=== PATIENT | male | born 1940 | race Caucasian/White ===

== ENCOUNTER 2018-07-18 21:56 | Emergency (ER) | payer MEDICARE, BC, SELFPAY ==
[2018-07-18 22:08] VITALS: BP 146/84; PULSE 65; RESP 14; TEMP 36.9; O2SAT 96
--- NOTE | 2018-07-18 22:09 | ED.AMS ---
HPI - Altered Mental Status General Chief Complaint: Neuro Symptoms/Deficit Stated Complaint: was found sleeping and unresponsive, is now alert Time Seen by Provider: 07/18/18 22:03 Source: patient, family and EMS Mode of arrival: ambulatory Limitations: no limitations History of Present Illness HPI narrative: 77-year-old male nonsmoker with history of hypertension and hyperlipidemia presents with multiple family members by private auto from 1 of the [place] eye [facility] for evaluation. He had a rather busy day of travel and admittedly had less to eat and drink than he normally would. He, in multiple family members went home to rest this afternoon and taking naps and the family found him difficult to arouse. They say he was snoring loudly and they shook him vigorously and he did not wake. Related Data Home Medications Medication Instructions Recorded Confirmed amlodipine 07/18/18 atorvastatin 07/18/18 losartan 07/18/18 metoprolol tartrate 07/18/18 Allergies Allergy/AdvReac Type Severity Reaction Status Date / Time No Known Drug Allergies Allergy Verified 07/18/18 22:10 Review of Systems Constitutional Denies chills, Denies fever(s), Denies lethargy and Denies weakness Eyes Denies change in vision, Denies eye discharge, Denies irritation and Denies loss of vision ENT Ears, Nose, Mouth, and Throat: Denies change in voice, Denies neck pain and Denies sore throat Cardiovascular Denies chest pain, Denies irregular heart rhythm, Denies lightheadedness, Denies palpitations, Denies dyspnea, Denies dyspnea on exertion and Denies orthopnea Respiratory Denies cough, Denies dyspnea, Denies dyspnea on exertion and Denies wheezing Gastrointestinal Gastrointestinal: Denies abdominal pain, Denies change in bowel habits, Denies diarrhea, Denies nausea and Denies vomiting Genitourinary Denies hematuria, Denies flank pain, Denies urinary incontinence and Denies urinary urgency Musculoskeletal Denies neck pain Integumentary/Breasts Denies pruritus, Denies erythema, Denies rash and Denies wounds Neurologic Denies confusion, Denies loss of vision and Denies weakness Psychiatric Denies anxiety, Denies confusion, Denies depression, Denies homicidal ideation and Denies suicidal ideation Endocrine Denies palpitations Hematologic/Lymphatic Denies easy bruising Allergic/Immunologic Denies wheezing Exam Narrative Exam Narrative: GENERAL: This is a well-nourished, well-developed patient, in mild distress. HEAD: Atraumatic. Normocephalic. No temporal or scalp tenderness. EYES: Pupils equal round and reactive. Extraocular motions intact. No scleral icterus. No injection or drainage. ENT: Nose without bleeding, purulent drainage or septal hematoma. Throat without erythema, tonsillar hypertrophy or exudate. Uvula midline. Airway patent. NECK: Trachea midline. No JVD or lymphadenopathy. Supple, nontender, no meningeal signs. CARDIOVASCULAR: Regular rate and rhythm without murmurs, gallops, or rubs. RESPIRATORY: Clear to auscultation. Breath sounds equal bilaterally. No wheezes, rales, or rhonchi. GASTROINTESTINAL: Abdomen soft, non-tender, nondistended. No hepato-splenomegaly, or palpable masses. No guarding. EXTREMITIES: No clubbing, cyanosis, or edema. No joint tenderness, effusion, or edema noted. BACK: Nontender without deformity or crepitance. No flank tenderness. NEURO: AOx3. SKIN: No rash or erythema. NIH Stroke Scale 1a. LOC: Patient is alert and keenly responsive (0) 1b. LOC Questions: Patient answers both LOC questions accurately (0) 1c. LOC Commands: Patient performs both tasks correctly (0) 2. Best Gaze: Normal (0) 3. Visual: No visual loss (0) 4. Facial palsy: Normal symmetrical movements (0) 5. Motor arm: No drift (0) 6. Motor leg: No drift (0) 7. Limb ataxia: Absent (0) 8. Sensory: Normal (0) 9. Best language: No aphasia; normal (0) 10. Dysarthria: Normal (0) 11. Extinction and inattention: No abnormality (0) NIHSS: 0 Initial Vital Signs Initial Vital Signs: Vital Signs Temperature 98.4 F 07/18/18 22:08 Pulse Rate 65 07/18/18 22:08 Respiratory Rate 14 07/18/18 22:08 Blood Pressure 146/84 H 07/18/18 22:08 Pulse Oximetry 96 07/18/18 22:08 Course Orders Ordered: ED Orders 07/18/18 22:19 CT head/brain wo con Stat EKG-12 Lead Stat 07/18/18 22:35 Basic Metabolic Panel Stat Complete Blood Count AUTO DIFF Stat Partial Thromboplastin Time Stat Prolactin Stat Prothrombin Time INR Stat Troponin I Stat Discontinued Medications Sodium Chloride (Normal Saline 0.9%) 1,000 mls @ 150 mls/hr IV CONT ARRON Last Infusion: 07/19/18 01:15 Dose: 0 mls/hr Infusion: 07/19/18 01:14 Dose: 0 mls/hr Admin: 07/18/18 22:48 Dose: 150 mls/hr Reevaluation(s) Reevaluation #1: patient Vital Signs - 8 hr 07/18/18 22:08 07/19/18 00:36 07/19/18 01:18 Temperature 98.4 F Pulse Rate 65 70 Pulse Rate [Orthostatic Lying] 64 Pulse Rate [Orthostatic Sitting] 62 Pulse Rate [Orthostatic Standing] 66 Respiratory Rate 14 19 Blood Pressure 146/84 H 135/89 Blood Pressure [Orthostatic Lying] 117/74 Blood Pressure [Orthostatic Sitting] 136/82 Blood Pressure [Orthostatic Standing] 127/92 H Pulse Oximetry 96 96 MDM - Altered Mental Status Lab Data Result diagrams: 07/18/18 22:35 07/18/18 22:35 Lab Results 07/18/18 07/18/18 07/18/18 Range/Units 22:35 22:35 22:35 WBC 14.2 H (4.5-11.0) X10^3/uL RBC 4.55 (4.5-5.9) X10^6/uL Hgb 14.8 (13.5-17.5) g/dL Hct 42.8 (41-53) % MCV 94.0 (80-100) fL MCH 32.5 (26-34) PG MCHC 34.6 (30-36) % RDW 13.3 (11.6-14.8) % Plt Count 166 (150-400) X10^3/uL Neut % (Auto) 77.7 H (50-75) % Lymph % (Auto) 13.2 L (25-40) % [place] % (Auto) 7.7 (3-14) % Eos % (Auto) 0.8 L (2-4) % Baso % (Auto) 0.6 (0-2) % Neut # (Auto) 29029 H (2306-0619) /uL Lymph # (Auto) 1900 (5408-5772) /uL [place] # (Auto) 1100 H (0-900) /uL Eos # (Auto) 100 (0-450) /uL Baso # (Auto) 100 (0-100) /uL PT 10.7 (10.1-12.7) SECONDS INR 0.9 (0.9-1.3) APTT 23 L (26.4-36.2) SECONDS Sodium (137-145) mmol/L Potassium (3.4-5.1) mmol/L Chloride (98-107) mmol/L Carbon Dioxide (22-32) mmol/L BUN (9-20) mg/dL Creatinine (0.66-1.25) mg/dL Estimated GFR (>60) mL/min BUN/Creatinine Ratio (6-22) Glucose (80-110) mg/dL Calcium (8.4-10.2) mg/dL Troponin I < 0.012 (0.01-0.034) ng/mL Prolactin 8.1 (3.7-17.9) ng/mL 07/18/18 Range/Units 22:35 WBC (4.5-11.0) X10^3/uL RBC (4.5-5.9) X10^6/uL Hgb (13.5-17.5) g/dL Hct (41-53) % MCV (80-100) fL MCH (26-34) PG MCHC (30-36) % RDW (11.6-14.8) % Plt Count (150-400) X10^3/uL Neut % (Auto) (50-75) % Lymph % (Auto) (25-40) % [place] % (Auto) (3-14) % Eos % (Auto) (2-4) % Baso % (Auto) (0-2) % Neut # (Auto) (1080-8011) /uL Lymph # (Auto) (3866-4562) /uL [place] # (Auto) (0-900) /uL Eos # (Auto) (0-450) /uL Baso # (Auto) (0-100) /uL PT (10.1-12.7) SECONDS INR (0.9-1.3) APTT (26.4-36.2) SECONDS Sodium 138 (137-145) mmol/L Potassium 3.9 (3.4-5.1) mmol/L Chloride 101 (98-107) mmol/L Carbon Dioxide 31 (22-32) mmol/L BUN 21 H (9-20) mg/dL Creatinine 0.90 (0.66-1.25) mg/dL Estimated GFR > 60.0 (>60) mL/min BUN/Creatinine Ratio 23.3 H (6-22) Glucose 108 (80-110) mg/dL Calcium 9.2 (8.4-10.2) mg/dL Troponin I (0.01-0.034) ng/mL Prolactin (3.7-17.9) ng/mL Point of Care Testing Glucose POC 102 Urine Dip Bedside Urine Glucose Negative Bedside Urine Bilirubin - Negative Bedside Urine Ketone +/- 5 Urine Specific [place] 1.020 Bedside Urine Occult Blood - Negative Bedside Urine pH 6 Bedside Urine Protein - Negative Bedside Urine Urobilinogen - Negative Bedside Urine Nitrite - Negative Bedside Urine Leukocytes - Negative Esterase Imaging Data CT scan - head: Radiologist's impression: NAP MDM Narrative Medical decision making narrative: Multiple etiologies for patient's symptoms considered including: [syncope vs. seizure, vs. encephalopathy vs. other] Patient's symptoms improved or duration of stay with above-stated therapies. Findings and discharge diagnosis discussed with patient/family followed by verbalization of understanding Return precautions discussed with patient/family whom verbalize understanding. Discharge Plan Departure Patient Disposition: Home Clinical Impression: Acute hypotension Discharge Date/Time: 07/19/18 01:19 Interventions: ED Discharge Assessment Last Done: 07/19/18 01:18 Instructions: DI for Altered Mental Status Activity Restrictions/Additional Instructions: *You have been diagnosed with [acute transient hypotension, resolved] *What to do: * continue to take medications as directed *Follow up with your primary care provider on Thursday as planned. Let them know you were seen in the Emergency Department and that we ask that you be seen in follow up *Return to ER if you should have any new, worsening or concerning symptoms Prescriptions: No Action amlodipine RF: 0 atorvastatin RF: 0 losartan RF: 0 metoprolol tartrate RF: 0
--- NOTE | 2018-07-18 22:19 | DI.CT.S_ITS ---
PROCEDURE: CT HEAD/BRAIN WO CON INDICATIONS: unresponsive episode TECHNIQUE: Noncontrast 4.5 mm thick angled axial sections acquired from the foramen magnum to the vertex, with coronal and sagittal reformats. For radiation dose reduction, the following was used: automated exposure control, adjustment of mA and/or kV according to patient size. COMPARISON: None. FINDINGS: Image quality: Excellent. CSF spaces: Basal cisterns are patent. No extra-axial fluid collections. The ventricles are symmetric in size and shape. Brain: No intracranial bleeds or masses. There is moderate cerebral volume loss for age, with resultant ventricular and sulcal prominence. There are moderate periventricular and deep white matter chronic small vessel ischemic changes. There is intracranial internal carotid artery atherosclerosis. Skull and face: Calvarium and visualized facial bones appear intact, without suspicious lesions. Sinuses: Visualized sinuses and mastoids are clear. IMPRESSION: 1. No acute intracranial abnormalities. 2. Cerebral volume loss and chronic microvascular ischemic changes. 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 Dictated by: Suyapa Baker M.D. on 07/19/2018 at 7:36 Approved by: Suyapa Baker M.D. on 07/19/2018 at 7:37
[2018-07-18 22:40] LABS: Add Manual Diff / Slide Review NO; Basophils Absolute Auto 100 /uL (0-100); Basophils Percent Auto 0.6 % (0-2); Eosinophils Absolute Auto 100 /uL (0-450); Eosinophils Percent Auto 0.8 % (2-4); Hematocrit 42.8 % (41-53); Hemoglobin 14.8 g/dL (13.5-17.5); Lymphocytes Absolute Auto 1900 /uL (1100-4500); Lymphocytes Percent Auto 13.2 % (25-40); Mean Corpuscular HGB Conc 34.6 % (30-36); Mean Corpuscular Hemoglobin 32.5 PG (26-34); Monocytes Absolute Auto 1100 /uL (0-900); Monocytes Percent Auto 7.7 % (3-14); Neutrophils Absolute Auto 11100 /uL (1500-7000); Neutrophils Percent Auto 77.7 % (50-75); Platelet Count 166 X10^3/uL (150-400); Red Blood Cell Count 4.55 X10^6/uL (4.5-5.9); Red Cell Distribution Width 13.3 % (11.6-14.8); White Blood Cell Count 14.2 X10^3/uL (4.5-11.0)
[2018-07-18] MEDS: SODIUM CHLORIDE 0.9% 1,000 ML 150 ML IV (22:48)
[2018-07-18 22:50] LABS: INR 0.9 (0.9-1.3); Prothrombin Time 10.7 SECONDS (10.1-12.7)
[2018-07-18 22:53] LABS: PTT Partial Thromboplastin Tim 23 SECONDS (26.4-36.2)
[2018-07-18 22:55] LABS: BUN Creatinine Ratio 23.3 (6-22); Blood Urea Nitrogen 21 mg/dL (9-20); Calcium 9.2 mg/dL (8.4-10.2); Carbon Dioxide 31 mmol/L (22-32); Chloride 101 mmol/L (98-107); Estimated Glomerular Filt Rate > 60.0 mL/min (>60); Glucose 108 mg/dL (80-110); HEMOLYSIS 72 (0-50); Sodium 138 mmol/L (137-145)
[2018-07-18 22:56] LABS: Potassium 3.9 mmol/L (3.4-5.1)
[2018-07-18 23:06] LABS: Troponin I < 0.012 ng/mL (0.01-0.034)
[2018-07-18 23:11] LABS: Prolactin 8.1 ng/mL (3.7-17.9)
[2018-07-19 00:36] VITALS: BP 117/74; BP 127/92; BP 136/82; PULSE 62; PULSE 64; PULSE 66
--- NOTE | 2018-07-19 01:15 | PC.NURSE ---
NS ended 99
[2018-07-19 01:18] VITALS: BP 135/89; PULSE 70; RESP 19; O2SAT 96
== END 2018-07-19 01:19 | disposition home or self-care (01) ==
PROVIDERS: Emergency Provider Emergency Medicine
DX: I95.9 Hypotension, unspecified (principal)
CPT/HCPCS: 36591; 70450; 80048; 81003; 82962; 84146; 84484; 85025; 85610; 85730; 93005; 96360; 96361; 99283; 99285